=== PATIENT | male | born 1990 ===

== ENCOUNTER 2016-09-24 08:51 | Emergency (ER) | payer OTHER ==
[2016-09-24 09:57] VITALS: BP 149/65
--- NOTE | 2016-09-24 10:39 | ED ---
Throat Pain/Nasal Congestion - History of Current Complaint Chief Complaint: UCEye Time Seen by Provider: 09/24/16 10:08 Hx Obtained From: Patient Onset/Duration: Sudden Onset - awoke yesterday with R upper eye lid pain and crusty discharge in corner of eye. no vision changes, no recent illness or injury Severity: Worse Since: - today more swollen and tender Associated Signs And Symptoms: Positive: Negative Cough: Nonproductive - Allergies/Home Medications Allergies/Adverse Reactions: Allergies Allergy/AdvReac Type Severity Reaction Status Date / Time No Known Allergies Allergy Verified 09/24/16 09:06 Home Medications: Home Medications Cholecalciferol [Vitamin D] 5,000 unit PO DAILY 09/24/16 [History Confirmed 06/30] Multiple Vitamin [Multi Vitamin] 1 tab PO DAILY 09/24/16 [History Confirmed 06/30] Oxbow-3 Fatty Acids [Fish Oil] 1,000 mg PO BID 09/24/16 [History Confirmed 09/24] Spirulina 500 mg PO TID 09/24/16 [History Confirmed 09/24/16] PMH/Surg Hx/FS Hx/Imm Hx Previously Healthy: Yes Endocrine/Hematology History: Denies: Hx Anticoagulant Therapy Cardiovascular History: Denies: Hx Hypertension Respiratory History: Denies: Hx Asthma GI History: Denies: Other GI Disorders Sensory History: Reports: Hx Contacts or Glasses - for driving only Opthamlomology History: Reports: Hx Vision Problem - had strabismus surgery OD years ago Neurological History: Denies: Hx Headaches, Hx Migraine Psychiatric History: Denies: Hx Anxiety, Hx Depression - Surgical History Surgery Procedure, Year, and Place: R eye Infectious Disease History: No Infectious Disease History: Denies: Traveled Outside the [place] in Last 30 Days - Family History Known Family History: Positive: None - Social History Occupation: Employed Full-time - construction Alcohol Use: Rare Substance Use Type: Reports: None Smoking Status (MU): Never Smoked Tobacco Review of Systems Constitutional: Negative Negative: Fever, Chills Positive: Drainage, Other - R upper eyelid swelling. Negative: Photophobia, Blurred Vision Negative: Sore Throat, Ear Ache, Nasal Discharge Cardiovascular: Negative Respiratory: Negative Gastrointestinal: Negative Skin: Negative Negative: Rash Neurological: Negative Negative: Headache Psychological: Normal All Other Systems Reviewed And Are Negative: Yes Physical Exam Triage Information Reviewed: Yes Vital Signs On Initial Exam: Initial Vitals Temp Pulse Resp BP Pulse Ox 98.7 F 70 14 147/91 100 09/24/16 08:55 09/24/16 08:55 09/24/16 08:55 09/24/16 08:55 09/24/16 08:55 Vital Signs Reviewed: Yes Appearance: Positive: Well-Appearing Skin: Positive: Warm, Skin Color Reflects Adequate Perfusion Eyes: Positive: EOMI, MARTI, Conjunctiva Clear, Discharge - small fissure outter canthus with purulent drainage. Upper eye lid swollen and erythemic ENT: Positive: TMs normal Neck: Positive: No Lymphadenopathy Respiratory/Lung Sounds: Positive: Clear to Auscultation Cardiovascular: Positive: Normal Neurological: Positive: Normal, Sensory/Motor Intact, Alert, Oriented to Person Place, Time Psychiatric: Positive: Normal Diagnostics - Vital Signs Vital Signs Temp Pulse Resp BP Pulse Ox 09/24/16 09:56 98.7 F 68 14 149/65 100 09/24/16 08:55 98.7 F 70 14 147/91 100 - Laboratory Lab Statement: Any lab studies that have been ordered have been reviewed, and results considered in the medical decision making process. EENT Course/Dx - Differential Diagnoses Differential Diagnoses: Cellulitis, Conjunctivitis, Foreign Body - Diagnoses Provider Diagnoses: Cellulitis Discharge - Discharge Plan Condition: Stable Disposition: HOME Prescriptions: Ciprofloxacin 0.3% OPTH.ALEXANDRA* [Cipro 0.3% Opth*] 2 drop RIGHT EYE Q4H #1 btl Erythromycin OPHTH.OINT* [Ilotycin OPHTH.OINT*] 1 applic RIGHT EYE BID #1 tube Additional Instructions: Apply warm moist packs to R eye lid every 2 hours for 48h use eye drops for 3 days and ointment as directed If your symptoms worsen at any time please return here or ER for recheck
== END 2016-09-24 10:51 | disposition home or self-care (01) ==
LOC: UCEAST 08:51
DX: H00.031 Abscess of right upper eyelid (principal)
CPT/HCPCS: 99202; G0463

== ENCOUNTER 2016-10-14 16:43 | Emergency (ER) | payer OTHER ==
[2016-10-14 17:20] VITALS: BP 154/84
[2016-10-14] MEDS ORDERED: DOXYcycline CAP(*) 100 MG PO ONE (17:27)
--- NOTE | 2016-10-14 17:27 | UC ---
Skin Complaint HPI - HPI Summary HPI Summary: tick bite right upper chest wall attached for about 24 hours removed most of the tick himself today - History of Current Complaint Chief Complaint: UCSkin Time Seen by Provider: 10/14/16 17:19 Stated Complaint: TICK BITE Hx Obtained From: Patient Onset/Duration: Sudden Onset, Lasting Days, Resolved Skin Exposure Onset/Duration: Days Ago - 1 Timing: Constant Onset Severity: Mild Current Severity: None Pain Intensity: 0 Pain Scale Used: 0-10 Numeric Location: Discrete Character: Redness Aggravating: Nothing Alleviating: Nothing Associated Signs & Symptoms: Positive: Negative - Allergy/Home Medications Allergies/Adverse Reactions: Allergies Allergy/AdvReac Type Severity Reaction Status Date / Time No Known Allergies Allergy Verified 09/24/16 09:06 Review of Systems Constitutional: Negative Skin: Negative - amount of mouth parts remain in right upper chest wall, Other Eyes: Negative ENT: Negative Respiratory: Negative Cardiovascular: Negative Gastrointestinal: Negative Genitourinary: Negative Motor: Negative Neurovascular: Negative Musculoskeletal: Negative Neurological: Negative Psychological: Negative All Other Systems Reviewed And Are Negative: Yes PMH/Surg Hx/FS Hx/Imm Hx Previously Healthy: Yes Cardiovascular History Of: Denies: Hypertension Respiratory History Of: Denies: Asthma Neurological History Of: Denies: Migraine Psychological History Of: Denies: Anxiety, Depression Other History Of: Negative For: Anticoagulant Therapy - Surgical History Surgical History: Yes Surgery Procedure, Year, and Place: R eye - Family History Known Family History: Positive: None - Social History Occupation: Employed Full-time - [employer] Lives: With Family Alcohol Use: Rare Substance Use Type: None Smoking Status (MU): Never Smoked Tobacco Physical Exam Triage Information Reviewed: Yes Appearance: Well-Appearing, No Pain Distress, Well-Nourished Vital Signs: Initial Vital Signs Temp 98.1 F 10/14/16 17:17 Pulse 71 10/14/16 17:17 Resp 18 10/14/16 17:17 BP 154/84 10/14/16 17:17 Pulse Ox 98 10/14/16 17:17 Eye Exam: Normal Eyes: Positive: Conjunctiva Clear ENT Exam: Normal ENT: Positive: Normal ENT inspection, Hearing grossly normal. Negative: Nasal congestion, Nasal drainage, Trismus, Muffled/hoarse voice Dental Exam: Normal Neck exam: Normal Neck: Positive: Supple, Nontender, No Lymphadenopathy Respiratory Exam: Normal Respiratory: Positive: No respiratory distress, No accessory muscle use Cardiovascular Exam: Normal Cardiovascular: Positive: RRR, Pulses Normal, Brisk Capillary Refill Musculoskeletal Exam: Normal Musculoskeletal: Positive: Strength Intact, ROM Intact, No Edema Neurological Exam: Normal Neurological: Positive: Alert, Muscle Tone Normal Psychological Exam: Normal Skin Exam: Normal Skin: Positive: Other - small superficial amount of skin off aound site of tic removal Course/Dx - Course Course Of Treatment: Doxycycline 200mg po times one now, wash wound with soap and water, report s/s of lyme to pcp or return to urgent care - Differential Diagnoses - Skin Complaint Differential Diagnoses: Cellulitis, Tick Born Illness, Other - tick expose lyme PEP - Diagnoses Provider Diagnoses: Tick Exposure, Lyme PEP Discharge - Discharge Plan Condition: Stable Disposition: HOME Patient Education Materials: Tick Bite (ED) Referrals: Enio Ashley MD [Primary Care Provider] - If Needed
[2016-10-14] MEDS ORDERED: DOXYcycline CAP(*) 100 MG ONE (17:41)
== END 2016-10-14 17:45 | disposition home or self-care (01) ==
LOC: UCEAST 16:43
DX: S20.361A Insect bite (nonvenomous) of right front wall of thorax, initial encounter (principal); W57.XXXA Bitten or stung by nonvenomous insect and other nonvenomous arthropods, initial encounter; Y93.9 Activity, unspecified; Y92.9 Unspecified place or not applicable; R03.0 Elevated blood-pressure reading, without diagnosis of hypertension
CPT/HCPCS: 99211; 99212; A9270-GY; G0463